=== PATIENT | female | born 1960 | race Caucasian/White ===

== ENCOUNTER 2023-07-31 11:15 | Outpatient (RCR) | payer OTHER, SELFPAY ==
--- NOTE | 2023-07-08 13:26 | OPREHPOC ---
Outpatient Therapy Plan of Care This is a Multidisciplinary Plan of Care that may contain components documented by all disciplines (PT, OT, and ST.) PT Problem 1 PT Problem #1 Knowledge Deficit PT Goal 1 Goal 1. Patient will perform independent HEP Target Visit 5 PT Problem 3 PT Problem #3 Impaired Strength PT Goal 1 Goal 1. Improve pelvic floor strength to 4/5 to decrease incontinence 2. Improve pelvic floor endurance to 10 seconds to decrease incontinence Target Visit 5 PT Problem 4 PT Problem #4 Impaired Functional ADLs PT Goal 1 Goal 1. Patient will report no more than 2 instances of incontinence per week Target Visit 5
--- NOTE | 2023-07-08 13:26 | PTOPEVAL1 ---
Assessment and note entered by Portia Maharaj DPT Evaluation Information Assessment Status Evaluation Subjective Information Pt reports urinary incontinence and urgency. Will get 2-3 feet from the toilet and leaks, incontinence occurs 3-4 times a day typically, often is the full amount of her bladder. Wears a pad and changes clothes 2-3 times a week. Voids 1- 2 times a day. Difficulty walking which also makes it harder to get to the bathroom in time. Can hold urge maybe a minute . Reports her symptoms have been worsening over the past few years. Has tried meds and Botox with min-moderate success for a short term. Denies pain with urination. BM varies between multiple times a day and several days between. Previously diagnoses with IBS and diverticulosis. Also diagnosed with fibro and chronic fatigues syndrome. No pain with BM. Fecal incontinence 1-2 times a week, a small amount. Pt has been 7 times, 3 deliveries: 1 vaginal 2 C-sections. Septic with her first delievery and had an epiziotomy. Pt reports no history of pelvic pain. Ovarian cyst removed in 2013 and history of breast cancer. Pt goal: be able to actually get to the bathroom, recognize it in time. Reports she has to plan out her day around her bladder especially if she is going out in the community. Avoids fluids at time especially at night. Reported Pain Level Pain Score 0: Self Report Assessment PT Clinical Summary The patient is presenting to skilled therapy with progressing history of urinary incontinence. She presents with decreased pelvic floor strength and endurance and decreased core strength which are contributing to her daily incontinence and need to change clothes and wear pads. She will highly benefit from skilled therapy to address these impairments and safely reduce incontinence and improve function. Plan of Care Interventions Manual Therapy,Neuro Re-education,Patient/ Caregiver Education,Therapeutic Activities, Therapeutic Exercise PT Services Indicated Yes Treatment Frequency and 1 time a week for 4 visits Duration These treatments will address the objective and functional deficits as defined above. The patient will be advanced safely and appropriately in order for the patient to progress towards his/her prior level of function. Additional exercises
--- NOTE | 2023-07-16 15:10 | PCPTNOTE ---
Pt called to cancel appointment for 07/16/23 due to needing to take care of her sick grandchildren.
--- NOTE | 2023-07-22 15:09 | PCPTNOTE ---
Patient did not show up for appointment on 07/22/23. Called patient but was unable to leave voicemail.
--- NOTE | 2023-08-05 12:38 | PCPTNOTE ---
Patient called to cancel appointment due to not having a ride.
--- NOTE | 2023-09-30 11:13 | PTOPDC ---
Assessment and note entered by Portia Maharaj, DPT Evaluation Information Assessment Status Discharge - Pt Not Present Subjective Information - Assessment PT Clinical Summary Patient has not attended therapy since 07/31/23 and will be discharged this date. Plan of Care PT Services Indicated No
== END 2023-09-30 12:36 | disposition home or self-care (01) ==
LOC: ANHGOSHPT 11:15
PROVIDERS: PCP Family Medicine; Visit Provider Family Medicine
DX: R32 Unspecified urinary incontinence (principal)
CPT/HCPCS: 97112; 97161; 97530

== ENCOUNTER 2025-07-20 09:00 | Outpatient (CLI) | payer OTHER, SELFPAY ==
--- NOTE | ~2025-07-20 | XR_ITS ---
XR lumbar spine 6V w bending Indication: Other low back pain Comparison: None Findings: Moderate osteopenia. Multiple remote compression fractures most marked involving L4, L3 and L2 with loss of height 50%, no acute fracture. Grade 1 anterolisthesis of L4 on L5, grade 1 anterolisthesis of L2 on L3. Moderate to severe loss of disc height throughout, no subluxation with flexion-extension. Soft tissues unremarkable Impression: No acute abnormality. Reviewed, dictated and finalized at location P. Impression: No acute abnormality.
== END 2025-07-20 09:01 | disposition home or self-care (01) ==
LOC: MICIMG 09:05
PROVIDERS: PCP Family Medicine; Visit Provider Nurse Practitioner Family
DX: M54.59 Other low back pain (principal)
CPT/HCPCS: 72114